=== PATIENT | male | born 1965 | race Caucasian/White ===

== ENCOUNTER 2023-12-18 12:47 | Emergency (ER) | payer OTHER, SELFPAY ==
[2023-12-18] VITALS (11 sets, daily range): BP systolic 126–150; BP diastolic 74–92
[2023-12-18 13:18] LABS: % Basophils 0.9 % (0-2); % Eosinophils 6.8 % (0-6); % Immature Granulocytes 0.2 % (0-0.5); % Lymphocytes 14.6 % (20.5-51.1); % Monocytes 8.7 % (1.7-9.3); % Neutrophils 68.8 % (42.2-75.2); Absolute Basophils 0.1 10^3/uL (0-0.2); Absolute Eosinophils 0.6 10^3/uL (0-0.7); Absolute Lymphocytes 1.3 10^3/uL (1.2-3.4); Absolute Monocytes 0.8 10^3/uL (0.1-0.6); Absolute Neutrophils 6.3 10^3/uL (1.4-6.5); Hematocrit 41.8 % (39.0-52.0); Hemoglobin 15.1 g/dL (13.0-18.0); Mean Corp Hgb Conc. 36.1 g/dL (33.0-37.0); Mean Corpuscular Hgb 31.9 pg (27.0-31.0); Mean Corpuscular Volume 88.2 fL (80.0-94.0); Mean Platelet Volume 10.2 fL (7.4-10.4); Nucleated Red Blood Cells % 0 % (-); Platelet Count 238 10^3/uL (130-400); Red Blood Cell Count 4.74 10^6/uL (4.70-6.10); Red Cell Dist. Width 12.2 % (11.5-14.5); White Blood Cell Count 9.1 10^3/uL (4.8-10.8)
--- NOTE | 2023-12-18 13:20 | ED.CVA ---
History of Present Illness
General
Chief Complaint: CVA/TIA Symptoms
Time Seen by Provider: 12/18/23 12:57
Course
Orders/Labs/Results
Orders:
Orders
12/18/23 12:52
Electrocardiogram (*1) Urgent
Reason for Study: Chest Pain
12/18/23 12:53
EKG- Treatment ONCE
12/18/23 13:03
Complete Blood Count/With Diff Urgent
Comprehensive Metabolic Panel Urgent
Troponin I Urgent
Abnormal Lab Results
12/18/23
13:03
MCH 31.9 H pg
(27.0-31.0)
Absolute Monos (auto) 0.8 H 10^3/uL
(0.1-0.6)
Lymphocytes % 14.6 L %
(20.5-51.1)
Eosinophils % 6.8 H %
(0-6)
12/18/23 13:03
Vital Signs
Initial and Last Documented VS:
Initial Vital Signs
Temp Pulse Resp BP Pulse Ox
97.9 F 86 18 150/74 97
12/18/23 12:53 12/18/23 12:53 12/18/23 12:53 12/18/23 12:53 12/18/23 12:53
Last Documented Vital Signs
Temp Pulse Resp BP Pulse Ox
97.9 F 86 18 150/74 97
12/18/23 12:53 12/18/23 12:53 12/18/23 12:53 12/18/23 12:53 12/18/23 12:53
ED Attending Note
-
Portions of this chart may have been created with voice recognition software.� Occasional wrong word or��sound alike� substitutions may have occurred due to the inherent limitations of voice recognition software.
Discharge Plan
Interventions
Interventions:
*Risk Screen - Suicide Last Done: 12/18/23 12:53
*General Assessment Last Done: 12/18/23 12:53
*Neglect/Abuse Screening Last Done: 12/18/23 12:53
Discharge Date and Time
Print Language: ZAMBIAN
--- NOTE | 2023-12-18 13:23 | ED.GENMED ---
History of Present Illness
General
Chief Complaint: Unresponsive
Source: patient and family
Time Seen by Provider: 12/18/23 12:57
History of Present Illness
History of Present Illness:
58-year-old male with past medical history of cerebral palsy, CVA in 2021, TBI, hypertension presenting to the emergency department via EMS for a reported episode of unresponsiveness that lasted approximately 5 minutes. EMS reports that they were
told by the patient's visiting nurse that patient had no pulse for 5 minutes but did not receive any CPR during this time and were concerned about patient's breathing as well. EMS did not witness any of the unresponsiveness nor any potential
seizure-like activity but patient's mother who is now present in the ER with the patient is stating that she did witness the patient have seizure-like activity. Mother states that the visiting nurse was also concerned for possible stroke as patient
had a right-sided facial droop his left upper extremity went flaccid for a few seconds as well. On arrival to the emergency department patient is awake alert and oriented x 3, no focal neurologic deficits, patient at baseline has minimal use of
both of his lower legs secondary to his cerebral palsy, no fevers or infectious symptoms or other concerns.
Past History
Past History
ED Past Medical History: CVA, HTN and Other (Cerebral palsy/TBI)
ED Past Surgical History: Other (PEG tube)
Social History
Tobacco: Non-smoker
Alcohol: None
Drug: None
Personal: Single
Living: with family
Employment: Disabled
Review of Systems
Review of Systems
All Other Systems: ROS reviewed and negative except as documented in HPI and ROS
Phy Exam
Physical Exam
Physical Exam:
GENERAL: Alert , in no apparent distress
Head: Normocephalic atraumatic
EYE: conjunctiva clear
NECK: Supple
ENT: o/p clr, dry mucous membranes
CARDIAC: Regular rate and rhythm
LUNGS: Clear breath sounds bilaterally, no acute respiratory distress, no wheezes/rales/rhonchi
ABDOMEN: Soft, nontender, nondistended
NEUROLOGICAL: Alert and oriented x 3, no facial droop, no aphasia, no dysarthria. mother reporting patient currently at baseline
SKIN: Warm and dry, skin intact.
MUSCULOSKELETAL: well perfused. bilateral lower extremity muscle wasting
PSYCH: Normal and appropriate interaction.
Scores
Heart Failure Risk
Heart Failure Risk Score: Not Applicable
Heart Score for Chest Pain Patients
STEMI patient?: Not applicable
Withdrawal Assessment of Alcohol
Withdrawal Assessment Completed?: Not applicable
Course
Orders/Labs/Results
Orders:
Orders
12/18/23 12:52
Electrocardiogram (*1) Urgent
Reason for Study: Chest Pain
12/18/23 12:53
EKG- Treatment ONCE
12/18/23 13:03
Complete Blood Count/With Diff Urgent
Comprehensive Metabolic Panel Urgent
Keppra (Levetiracetam) [S] Urgent
Comment: ADD ON PER [id number]
Troponin I Urgent
12/18/23 13:20
CT Head W/o Iv Contrast Urgent
Comment:
Reason For Exam: breakthrough seizure, unresponsive
12/18/23 13:23
Add On- LAB Urgent
Tests Added?: Keppra
Abnormal Lab Results
12/18/23
13:03
MCH 31.9 H pg
(27.0-31.0)
Absolute Monos (auto) 0.8 H 10^3/uL
(0.1-0.6)
Lymphocytes % 14.6 L %
(20.5-51.1)
Eosinophils % 6.8 H %
(0-6)
Carbon Dioxide 32 H mmol/L
(22-30)
BUN 25 H mg/dl
(9-20)
Glucose 109 H mg/dl
(70-99)
ALT 58 H U/L
(0-50)
12/18/23 13:03
12/18/23 13:03
Vital Signs
Initial and Last Documented VS:
Initial Vital Signs
BP
150/74
12/18/23 12:51
Last Documented Vital Signs
Temp Pulse Resp BP Pulse Ox
97.9 F 80 14 137/89 93
12/18/23 12:53 12/18/23 17:15 12/18/23 17:15 12/18/23 17:00 12/18/23 17:15
MDM/Problems Addressed
Differential Diagnosis Includes:
Breakthrough seizure, less concern for CVA. I do not have any concerns that patient went into cardiac arrest based off of the story and history obtained from patient mother
MDM/Problems Addressed:
58-year-old male presenting to the emergency department for evaluation of reported episode of unresponsiveness that lasted for about 5 minutes. History is very difficult to obtain as this is all secondhand through the mother as well as EMS. Mother
notes that she did witness seizure-like activity. There was report from visiting nurse that patient may have had pulselessness for 5 minutes which certainly seems unlikely given patient is at his current mental status baseline and did not receive
CPR or medications for cardiac arrest on the way to the room. Patient is also without any focal neurologic deficits on arrival here. It is possible he had a TIA given his medical history. Will obtain labs, Keppra level, CT of the head and
continue to monitor. Patient has outpatient EEG scheduled with his neurologist however mother notes that due to patient's discal condition she does have a very difficult time getting patient to and from different appointments.
Chronic conditions affecting care: Neurological disorder
Acute Exacerbation and/or Progression of Chronic Illness: Neurological disorder
*Pulse Oximetry
Patient hypoxic: no
*EKG
Interpreted by ED Provider?: Yes
Heart Rate: 86
Rate: normal
Rhythm: sinus
[place]: normal axis
Ischemia: no ischemia
*[employer]ist Interpretation
Rate: normal
Rhythm: sinus
*Critical Care Note
Total Time (30-74mins, 75-104mins- exclusive of procedures): Not Applicable
Patient Management
Social determinants of health affecting care: Living situation and Strong social support
Escalation/DeEscalation of care consider admission/obs:
CT without acute etiology. Patient has remained without seizure in the ED. Stable for discharge home and can follow up with outpatient neurologist. Patient has mother and home health nurses through [facility] with his continued care.
ED Attending Note
-
Portions of this chart may have been created with voice recognition software.� Occasional wrong word or��sound alike� substitutions may have occurred due to the inherent limitations of voice recognition software.
Discharge Plan
Departure
Patient Disposition: Home (Routine Discharge)
Date of Disposition: 12/18/23
Time of Disposition: 16:43
Patient with high blood pressure during this ER visit?: Yes
Discharge Problem:
Seizure
Instructions: Seizures
Referrals:
Tc Rowley MD [Active] - (Neurology if you would like new neurologist to follow up with bassam Cedillo)
UNKNOWN - PT NOT,INTERVIEWE [Family Provider] -
Interventions
Interventions:
*Risk Screen - Suicide Last Done: 12/18/23 12:53
*General Assessment Last Done: 12/18/23 12:53
*Neglect/Abuse Screening Last Done: 12/18/23 12:53
ED- Fall Risk Assessment Last Done: 12/18/23 19:04
*ED COVID-19 Vaccine History Last Done: 12/18/23 19:04
*Nursing Disposition Last Done: 12/18/23 19:04
ED- Neurological Assessment Last Done: 12/18/23 13:24
Discharge Date and Time
Discharge Date/Time: 12/18/23 19:06
Print Language: [place]
[2023-12-18 13:30] LABS: ALT (SGPT) 58 U/L (0-50); AST (SGOT) 34 U/L (17-59); Albumin 4.4 g/dl (3.5-5.0); Alkaline Phosphatase 97 U/L (38-126); Blood Urea Nitrogen 25 mg/dl (9-20); Calcium 9.7 mg/dl (8.4-10.2); Carbon Dioxide 32 mmol/L (22-30); Chloride 103 mmol/L (98-107); Glucose 109 mg/dl (70-99); Potassium 4.2 mmol/L (3.5-5.1); Sodium 139 mmol/L (135-145); Total Bilirubin 0.8 mg/dl (0.2-1.3); Total Protein 6.8 g/dl (6.3-8.2); eGFR > 60.00
[2023-12-18 13:41] LABS: Troponin I < 0.012 ng/ml
[2023-12-20 07:52] LABS: Keppra (Levetiracetam) 18 ug/mL (10-40)
== END 2023-12-18 19:06 | disposition home or self-care (01) ==
LOC: EMR 12:47
PROVIDERS: EMERGENCY PHYSICIAN Emergency Medicine
DX: R40.4 Transient alteration of awareness (principal); R29.810 Facial weakness; G80.8 Other cerebral palsy; R56.9 Unspecified convulsions; I10 Essential (primary) hypertension; Z93.1 Gastrostomy status; Z87.820 Personal history of traumatic brain injury; Z86.73 Personal history of transient ischemic attack (TIA), and cerebral infarction without residual deficits
CPT/HCPCS: 99284; 70450; 80053; 80177; 84484; 85025; 93005